=== PATIENT | female | born 1985 | race American Indian/Alaskan Native ===

== ENCOUNTER 2016-06-17 21:40 | Emergency (ER) | payer OTHER ==
[2016-06-17 21:58] VITALS: BP 118/74
[2016-06-17] MEDS ORDERED: MOTRIN PO ONE (23:46)
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
--- NOTE | 2016-06-17 23:59 | XRay Report ---
FINAL REPORT PROCEDURE: XR SHOULDER 2 RT TECHNIQUE: Right shoulder radiographs including AP views in internal and external rotation and abduction. CPT 76810 HISTORY: shoulder pain COMPARISON: No prior studies are available for comparison. FINDINGS: Fracture (s) and/or Dislocation(s): None . Joint space(s): Normal . Soft tissues: Normal . Bone mineralization: Normal . Foreign bodies: None . IMPRESSION: Normal Examination
== END 2016-06-18 00:14 | disposition home or self-care (01) ==
LOC: ED 21:40
DX: M54.2 Cervicalgia (principal); M25.511 Pain in right shoulder; J45.909 Unspecified asthma, uncomplicated; V49.9XXA Car occupant (driver) (passenger) injured in unspecified traffic accident, initial encounter; Y92.488 Other paved roadways as the place of occurrence of the external cause; Y93.89 Activity, other specified; Y99.8 Other external cause status
CPT/HCPCS: 81025